=== PATIENT | male | born 1990 | race Caucasian/White ===

== ENCOUNTER 2017-09-21 19:08 | Emergency (ER) | payer OTHER ==
[~2017-09-21] VITALS: Ht 172.7 cm; Wt 63.5 kg
[~2017-09-21 19:08] MED LIST: BENTYL10 MG PO; REGLAN10 MG PO; ZOFRAN ODT4 M1 PO
[2017-09-21 20:11] LABS: ABSOLUTE BASOPHIL COUNT 0 /CUMM (0.0-0.2); ABSOLUTE EOSINOPHIL COUNT 0 /CUMM (0.0-0.7); ABSOLUTE GRANULOCYTE CT 9.6 /CUMM (1.4-6.5); ABSOLUTE LYMPH COUNT 0.5 /CUMM (1.2-3.4); ABSOLUTE MONOCYTE COUNT 0.2 /CUMM (0.10-0.60); BASOPHIL % 0 % (0.0-2.0); EOSINOPHIL % 0 % (0-5); HEMATOCRIT 51.1 % (42-52); MEAN CORPUSCULAR HGB 32.9 PG (27.0-31.0); MEAN CORPUSCULAR HGB CONC 33.8 G/DL (33.0-37.0); MEAN CORPUSCULAR VOLUME 97.4 FL (80.0-94.0); MEAN PLATELET VOLUME 8.2 FL (7.4-10.4); PLATELET COUNT 144 /CUMM (130-400); RBC DISTRIBUTION WIDTH 13.2 % (11.5-14.5); RED BLOOD CELL CT 5.24 /CUMM (4.70-6.10); WHITE BLOOD CELL COUNT 10.3 /CUMM (4.8-10.8)
[2017-09-21 20:31] LABS: GRANULOCYTE % 93.3 % (42.2-75.2)
--- NOTE | 2017-09-21 21:36 | ED GI/GU/ABDOMINAL COMPLAINT ---
History of Present Illness General Chief Complaint: Abdominal Pain/Flank Pain Stated Complaint: ABD PAIN AND VOMITTING Source: patient, old records, friend Exam Limitations: no limitations Vital Signs & Intake/Output Vital Signs & Intake/Output Vital Signs Date Time Temp Pulse Resp B/P B/P Pulse O2 O2 Flow FiO2 Mean Ox Delivery Rate 09/21 2144 98.1 118 18 140/95 99 09/21 2000 98.3 128 18 147/95 98 Room Air Allergies Coded Allergies: Penicillins (Mild, RASH 09/21/17) Reconcile Medications Ondansetron (Zofran Odt) 4 MG TAB.RAPDIS 1 TAB PO Q6 PRN NAUSEA Triage Note: PT FROM HOME C/O DEHYDRATION FOR THE PAST 2X DAYS. PT IS UNABLE FOR THE PAST 2 DAYS TO USE THE RESTROOM, OR TOLERATE ANYTHING BY MOUTH. PTS BP ELEVATED 147/95, HR 128. PT STATES "FLARE UP/EPISODE" OF HX HIS HC OF CYCLIC VOMITING SNYDROME. AFEBRILE. PT STATES MEDICATED QITH 1MG CLONODIN AROUND 0800. Triage Nurses Notes Reviewed? yes Onset: 2 days Duration: day(s):, constant, continues in ED Timing: recent history Quality/Severity: aching, moderate, vomiting Location: generalized abdomen Radiation: no radiation Activities at Onset: none Prior Abdominal Problems: similar symptoms Past Sexual History: Unobtainable at this time Modifying Factors: Worsens With: eating. Associated Symptoms: abdominal pain, loss of appetite, nausea/vomiting HPI: Patient has a history of cyclic vomiting syndrome. 2 days prior to admission after some anxiety provoking stress he developed frequent nausea vomiting abdominal discomfort unable to tolerate solid food or liquid. Complains of being dizzy and fatigued. He denies fever chills chest pain cough shortness of breath headache dysuria rash bleeding diarrhea. Past History Travel History Traveled to [place] past 21 day No Medical History Any Pertinent Medical History? 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 No Review of Systems Review of Systems Constitutional: Reports: see HPI, malaise. EENTM: Reports: no symptoms. Respiratory: Reports: no symptoms. Cardiovascular: Reports: no symptoms. GI: Reports: see HPI, abdominal pain, nausea, vomiting. Genitourinary: Reports: no symptoms. Musculoskeletal: Reports: no symptoms. Skin: Reports: no symptoms. Neurological/Psychological: Reports: no symptoms. Hematologic/Endocrine: Reports: no symptoms. Immunologic/Allergic: Reports: no symptoms. All Other Systems: Reviewed and Negative Physical Exam Physical Exam General Appearance: well developed/nourished, alert, awake, anxious, mild distress, thin Head: atraumatic, normal appearance Eyes: Bilateral: normal appearance, PERRL, EOMI, normal inspection. Ears, Nose, Throat, Mouth: hearing grossly normal, Dry mucous membranes Neck: normal inspection, supple, full range of motion, normal alignment Respiratory: normal breath sounds, chest non-tender, no respiratory distress, quiet respiration, lungs clear Cardiovascular: regular rate/rhythm, normal peripheral pulses, norml femoral pulses equa Peripheral Pulses: 4+ carotid (R), 4+ carotid (L) Gastrointestinal: soft, non-tender, no organomegaly, abnormal bowel sounds Male Genitals: normal genitalia Back: normal inspection, normal range of motion Extremities: normal range of motion, no ligament instability Neurologic/Psych: no motor/sensory deficits, awake, alert, oriented x 3, normal gait, normal mood/affect, 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 No Sepsis Present: No Sepsis Focused Exam Completed? No Progress Differential Diagnosis: biliary colic, gastritis, pancreatitis Plan of Care: Orders Procedure Date/time Status URINALYSIS 09/21 1924 Complete LIPASE 09/21 1924 Complete COMPREHENSIVE METABOLIC PANEL 09/21 1924 Complete CBC WITHOUT DIFFERENTIAL 09/21 1924 Complete Laboratory Tests 09/21/17 2242: Urine Color YEL, Urine Clarity CLEAR, Urine pH 6.0, Ur Specific [place] >= 1.030 , Urine Protein 30 H, Urine Ketones 15 H, Urine Nitrite NEG, Urine Bilirubin NEG, Urine Urobilinogen 0.2, Ur Leukocyte Esterase NEG, Ur Microscopic SEDIMENT EXAMINED, Urine RBC FEW H, Urine WBC RARE, Ur Epithelial Cells RARE, Urine Bacteria FEW H, Urine Mucus MOD H, Urine Hemoglobin NEG, Urine Glucose NEG 09/21/171956: Anion Gap 28 H, Estimated GFR > 60, BUN/Creatinine Ratio 10.0, Glucose 87, Calcium 10.5 H, Total Bilirubin 0.8, AST 86 H, ALT 116 H, Alkaline Phosphatase 77, Total Protein 8.8 H, Albumin 5.8 H, Globulin 3.0, Albumin/ Globulin Ratio 1.9, Lipase 120, CBC w Diff NO MAN DIFF REQ, RBC 5.24, MCV 97.4 H, MCH 32.9 H, MCHC 33.8, RDW 13.2, MPV 8.2, Gran % 93.3 H, Lymphocytes % 5.0 L, Monocytes % 1.7, Eosinophils % 0, Basophils % 0, Absolute Granulocytes 9.6 H , Absolute Lymphocytes 0.5 L, Absolute Monocytes 0.2, Absolute Eosinophils 0, Absolute Basophils 0 Initial ED EKG: none Departure Departure Time of Disposition: 2315 Disposition: HOME OR SELF CARE Condition: Stable Clinical Impression Primary Impression: Cyclic vomiting syndrome Secondary Impressions: Dehydration Referrals: Patient Has No Primary Care Dr (PCP/Family) Departure Forms: Customer Survey General Discharge Information Prescriptions: Current Visit Scripts Metoclopramide HCl (Reglan) 1 TAB PO 4 TIMES/DAY PRN nausea/vomiting #60 TAB 30 minutes before meals and bedtime
[2017-09-21 21:45] VITALS: BP 140/95
[2017-09-21] MEDS ORDERED: REGLAN10 M1 PO (23:17)
== END 2017-09-21 23:25 ==
LOC: ERH 19:08
PROVIDERS: Physician Assistant Medical
DX: G43.A0 Cyclical vomiting, in migraine, not intractable (principal); E86.0 Dehydration
CPT/HCPCS: 81001; 96361; 96374; 96375; 99291; J2765